=== PATIENT | male | born 1955 | race Caucasian/White ===

== ENCOUNTER 2024-04-01 11:52 | Inpatient (IN) | payer OTHER ==
[~2024-04-01] VITALS: Ht 160 cm; Wt 46.5 kg
[2024-04-01] VITALS (7 sets, daily range): BP systolic 107–112; BP diastolic 62–65; PULSE 82–86; RESP 15–20; TEMP 98.2; O2SAT 95–99
[2024-04-01] MEDS: NACL 0.9% 1,000 ML IV ONE (12:41)
[2024-04-01 12:43] LABS: BASOPHILS % (AUTO) 0.3 % (0.0-2.0); EOSINOPHILS # (AUTO) 0.1 K/uL (0-0.4); EOSINOPHILS % (AUTO) 1.5 % (0.0-4.0); HEMATOCRIT 44.9 % (36-52); HEMOGLOBIN 15.3 g/dL (12.0-18.0); LYMPHOCYTES # (AUTO) 0.3 K/uL (2.0-11.5); LYMPHOCYTES % (AUTO) 3.9 % (20.5-51.1); MEAN CORPUSCULAR HEMOGLOBIN 30 pg (27-31); MEAN CORPUSCULAR HGB CONC 34 g/dL (33-37); MEAN CORPUSCULAR VOLUME 89.1 fL (80-94); MONOCYTES # (AUTO) 0.5 K/uL (0.8-1.0); MONOCYTES % (AUTO) 5.6 % (1.7-9.3); NEUTROPHILS # (AUTO) 7.8 K/uL (1.8-7.7); NEUTROPHILS % (AUTO) 88.7 % (42.2-75.2); PLATELET COUNT (AUTO) 123 K/uL (140-450); RED BLOOD CELL COUNT(AUTO) 5.04 MIL/uL (4.20-6.10); RED CELL DISTRIBUTION WIDTH 13.4 % (11.6-13.7); WHITE BLOOD COUNT (AUTO) 8.7 K/uL (4.8-10.8)
[2024-04-01 13:00] LABS: ANION GAP 12.8 (8-16); CALCIUM 8.8 mg/dL (8.5-10.1); CARBON DIOXIDE 26.1 mmol/L (21-32); POTASSIUM 3.9 mmol/L (3.5-5.1)
[2024-04-01 13:08] LABS: FLU A ANTIGEN negative (NEGATIVE); FLU B ANTIGEN NEGATIVE (NEGATIVE)
[2024-04-01 13:28] LABS: APPEARANCE,URINE CLEAR (CLEAR); BILIRUBIN,URINE 3+ (NEGATIVE); BLOOD, URINE 2+ (NEGATIVE); LEUKOCYTE ESTERASE ,URINE NEGATIVE (NEGATIVE); NITRITE, URINE NEGATIVE (NEGATIVE); PROTEIN,URINE 2+ (NEGATIVE); UGLUCOSE 3+ (NEGATIVE)
[2024-04-01 13:36] LABS: ALANINE AMINOTRANSFERASE 187 U/L (12-78); ALBUMIN 2.9 g/dL (3.4-5.0); ALCOHOL, BLOOD < 3 mg/dL (<10); ALKALINE PHOSPHATASE 230 U/L (50-136); ASPARTATE AMINOTRANSFERASE 132 U/L (15-37); BILIRUBIN,DIRECT 7.1 mg/dL (0.0-0.3); CREATINE KINASE, TOTAL 18 U/L (39-308); TOTAL BILIRUBIN 8.2 mg/dL (0.0-1.0); TOTAL PROTEIN, SERUM 6.6 g/dL (6.4-8.2)
[2024-04-01 13:44] LABS: AMPHETAMINE, URINE NEGATIVE ng/ml (NEG <=1000); BARBITURATE, URINE NEGATIVE ng/ml (NEG <=200); BENZODIAZEPINE, URINE NEGATIVE ng/mL (NEG <=200); CANNABINOID, URINE NEGATIVE ng/mL (NEG <=50); COCAINE, URINE NEGATIVE ng/mL (NEG <=300); OPIATE, URINE NEGATIVE ng/mL (NEG <=2000); PHENCYCLIDINE SCREEN,URINE NEGATIVE ng/mL (NEG <=25)
[2024-04-01 13:47] LABS: COLOR,URINE DARK YELLOW (YELLOW)
[2024-04-01 13:52] LABS: ICTOTEST POSITIVE (NEGATIVE)
[2024-04-01 13:56] LABS: BACTERIA,URINE 1+ /HPF (None Seen); RBC,URINE 0-5 /HPF (0-5); SQUAMOUS EPITHELIAL CELL,UR 0-3 (FEW) /LPF (0-3 (FEW)); WBC,URINE 0-5 /HPF (0-5)
[2024-04-01] MEDS ORDERED: DEXTROSE 50% 50 ML SYR IVP PRN (16:40)
[2024-04-01] MEDS ORDERED: ONDANSETRON 4 MG/2 ML VIAL IVP PRN (16:40)
[2024-04-01] MEDS: NACL 0.9% 1,000 ML IV SCH (16:53)
[2024-04-01] MEDS: INSULIN LISPRO SLIDING SCALE 100 UNITS/ML VIAL SUBQ PRN (17:00)
[2024-04-01] MEDS: BLOOD GLUCOSE MONITORING 1 DEV DEV FS SCH (21:06)
[2024-04-01] MEDS ORDERED: PRED5DRO LEFT EYE (22:10)
[2024-04-01] MEDS ORDERED: KETO5SOL OP (22:10)
[2024-04-02] VITALS: BP 105/65; PULSE 63; PULSE 80; RESP 18; TEMP 98.2; O2SAT 96
[2024-04-02 04:00] VITALS: BP_SYST 116; BP_SYST 156; BP_DIAS 72; BP_DIAS 83; PULSE 77; PULSE 78; RESP 18; TEMP 97.6; O2SAT 96
[2024-04-02 07:04] LABS: BASOPHILS % (AUTO) 0.3 % (0.0-2.0); EOSINOPHILS # (AUTO) 0.1 K/uL (0-0.4); EOSINOPHILS % (AUTO) 1.8 % (0.0-4.0); HEMATOCRIT 39.6 % (36-52); HEMOGLOBIN 13.8 g/dL (12.0-18.0); LYMPHOCYTES # (AUTO) 0.4 K/uL (2.0-11.5); LYMPHOCYTES % (AUTO) 6.5 % (20.5-51.1); MEAN CORPUSCULAR HEMOGLOBIN 31 pg (27-31); MEAN CORPUSCULAR HGB CONC 35 g/dL (33-37); MEAN CORPUSCULAR VOLUME 89.6 fL (80-94); MONOCYTES # (AUTO) 0.4 K/uL (0.8-1.0); NEUTROPHILS # (AUTO) 5.3 K/uL (1.8-7.7); NEUTROPHILS % (AUTO) 84.4 % (42.2-75.2); PLATELET COUNT (AUTO) 106 K/uL (140-450); RED BLOOD CELL COUNT(AUTO) 4.42 MIL/uL (4.20-6.10); RED CELL DISTRIBUTION WIDTH 13.6 % (11.6-13.7); WHITE BLOOD COUNT (AUTO) 6.2 K/uL (4.8-10.8)
[2024-04-02 07:06] LABS: ANION GAP 13.3 (8-16); CALCIUM 8.2 mg/dL (8.5-10.1); CARBON DIOXIDE 22.4 mmol/L (21-32); CREATININE 0.8 mg/dL (0.6-1.3); POTASSIUM 3.7 mmol/L (3.5-5.1)
[2024-04-02 07:08] LABS: ALBUMIN 2.4 g/dL (3.4-5.0); BILIRUBIN,DIRECT 6.4 mg/dL (0.0-0.3); TOTAL BILIRUBIN 7.4 mg/dL (0.0-1.0); TOTAL PROTEIN, SERUM 5.7 g/dL (6.4-8.2)
[2024-04-02 08:00] VITALS: BP 116/64; PULSE 71; PULSE 72; RESP 18; TEMP 98.9; O2SAT 98
[2024-04-02 12:00] VITALS: BP 106/60; PULSE 64; PULSE 89; RESP 18; TEMP 97.1; O2SAT 98
[2024-04-02 16:00] VITALS: BP 132/85; PULSE 76; RESP 18; TEMP 98.5; O2SAT 98
[2024-04-02 20:00] VITALS: BP 148/84; PULSE 72; RESP 17; RESP 18; TEMP 98.5; O2SAT 96
[2024-04-03 04:15] VITALS: BP 146/91; PULSE 77; RESP 17; TEMP 98.7; O2SAT 96
[2024-04-03 06:08] LABS: HEPATITIS A ANTIBODY IGM Negative (Negative); HEPATITIS B CORE AB TOTAL Negative (Negative); HEPATITIS B CORE, IGM Negative (Negative); HEPATITIS B SURFACE ANTIBODY Non Reactive (.); HEPATITIS B SURFACE ANTIGEN Negative (Negative); HEPATITIS C VIRUS ANTIBODY Non Reactive (Non Reactive)
[2024-04-03 06:56] LABS: BASOPHILS % (AUTO) 0.5 % (0.0-2.0); EOSINOPHILS # (AUTO) 0.1 K/uL (0-0.4); EOSINOPHILS % (AUTO) 1.9 % (0.0-4.0); HEMATOCRIT 39.1 % (36-52); HEMOGLOBIN 13.7 g/dL (12.0-18.0); LYMPHOCYTES # (AUTO) 0.6 K/uL (2.0-11.5); LYMPHOCYTES % (AUTO) 11.5 % (20.5-51.1); MEAN CORPUSCULAR HEMOGLOBIN 31 pg (27-31); MEAN CORPUSCULAR HGB CONC 35 g/dL (33-37); MEAN CORPUSCULAR VOLUME 88.6 fL (80-94); MONOCYTES # (AUTO) 0.5 K/uL (0.8-1.0); MONOCYTES % (AUTO) 10.1 % (1.7-9.3); NEUTROPHILS # (AUTO) 3.9 K/uL (1.8-7.7); PLATELET COUNT (AUTO) 117 K/uL (140-450); RED BLOOD CELL COUNT(AUTO) 4.41 MIL/uL (4.20-6.10); RED CELL DISTRIBUTION WIDTH 13.5 % (11.6-13.7); WHITE BLOOD COUNT (AUTO) 5.2 K/uL (4.8-10.8)
[2024-04-03 07:05] LABS: CALCIUM 8.3 mg/dL (8.5-10.1); CARBON DIOXIDE 22.6 mmol/L (21-32); CREATININE 0.7 mg/dL (0.6-1.3); POTASSIUM 3.6 mmol/L (3.5-5.1)
[2024-04-03 07:14] LABS: ALBUMIN 2.2 g/dL (3.4-5.0); BILIRUBIN,DIRECT 6.9 mg/dL (0.0-0.3); TOTAL BILIRUBIN 7.7 mg/dL (0.0-1.0); TOTAL PROTEIN, SERUM 5.8 g/dL (6.4-8.2)
[2024-04-03 08:00] VITALS: BP 130/86; PULSE 80; PULSE 86; RESP 17; RESP 18; TEMP 98; O2SAT 96; O2SAT 97
[2024-04-03 09:31] LABS: HEPATITIS A ANTIBODY TOTAL Positive (Negative)
[2024-04-03 20:00] VITALS: BP 141/90; PULSE 74; PULSE 81; RESP 18; RESP 19; TEMP 98.7; O2SAT 98
[2024-04-04] VITALS: TEMP 97.9
[2024-04-04 04:00] VITALS: BP 137/73; PULSE 68; RESP 18; TEMP 97.6; O2SAT 99
[2024-04-04 07:01] LABS: BASOPHILS % (AUTO) 0.6 % (0.0-2.0); EOSINOPHILS # (AUTO) 0.1 K/uL (0-0.4); EOSINOPHILS % (AUTO) 2.7 % (0.0-4.0); HEMATOCRIT 39.2 % (36-52); HEMOGLOBIN 13.7 g/dL (12.0-18.0); LYMPHOCYTES # (AUTO) 0.7 K/uL (2.0-11.5); LYMPHOCYTES % (AUTO) 15.7 % (20.5-51.1); MEAN CORPUSCULAR HEMOGLOBIN 31 pg (27-31); MEAN CORPUSCULAR HGB CONC 35 g/dL (33-37); MEAN CORPUSCULAR VOLUME 87.7 fL (80-94); MONOCYTES # (AUTO) 0.7 K/uL (0.8-1.0); MONOCYTES % (AUTO) 14.3 % (1.7-9.3); NEUTROPHILS # (AUTO) 3.1 K/uL (1.8-7.7); NEUTROPHILS % (AUTO) 66.7 % (42.2-75.2); PLATELET COUNT (AUTO) 129 K/uL (140-450); RED BLOOD CELL COUNT(AUTO) 4.47 MIL/uL (4.20-6.10); RED CELL DISTRIBUTION WIDTH 13.5 % (11.6-13.7); WHITE BLOOD COUNT (AUTO) 4.7 K/uL (4.8-10.8)
[2024-04-04 07:40] LABS: ANION GAP 11.7 (8-16); CALCIUM 8.1 mg/dL (8.5-10.1); CARBON DIOXIDE 24.7 mmol/L (21-32); CREATININE 0.6 mg/dL (0.6-1.3); MAGNESIUM 1.7 mg/dL (1.8-2.4); POTASSIUM 3.4 mmol/L (3.5-5.1); TOTAL BILIRUBIN 7.7 mg/dL (0.0-1.0); TOTAL PROTEIN, SERUM 5.5 g/dL (6.4-8.2)
[2024-04-04 08:00] VITALS: BP 135/71; PULSE 77; RESP 18; TEMP 97; O2SAT 99
[2024-04-04] MEDS: fentaNYL citrate 0.05 MG/ML VIAL ONE (08:58)
[2024-04-04] MEDS: MIDAZOLAM 2 MG/2 ML VIAL ONE (08:59)
[2024-04-04] MEDS: PROPOFOL 200 MG/20 ML VIAL IV ONE (09:00)
[2024-04-04] MEDS: ONDANSETRON 4 MG/2 ML VIAL ONE (09:00)
[2024-04-04] MEDS: SUCCINYLCHOLINE CHLORIDE 200 MG/10 ML VIAL IVP ONE (09:00)
[2024-04-04] MEDS: ePHEDrine 50 MG/ML VIAL ONE (10:59)
[2024-04-04] MEDS: DEXAMETHASONE 4 MG/ML VIAL ONE (10:59)
[2024-04-04] MEDS ORDERED: SEVOFLURANE 250 ML BTL INH ONE (11:01)
[2024-04-04] MEDS: MORPHINE SULFATE 2 MG/ML SYR IVP PRN (14:58)
== END 2024-04-04 17:40 | disposition left against medical advice (07) ==
LOC: MED 11:52 → MTU 16:39
PROVIDERS: ADMIT Student in an Organized Health Care Education/Training Program; ATTEND Student in an Organized Health Care Education/Training Program
PROC: 0F798ZZ Dilation of Common Bile Duct, Via Natural or Artificial Opening Endoscopic (ICD-10-PCS; 2024-04-04)
PROC: 0F788ZZ Dilation of Cystic Duct, Via Natural or Artificial Opening Endoscopic (ICD-10-PCS; 2024-04-04)
PROC: BF131ZZ Fluoroscopy of Gallbladder and Bile Ducts using Low Osmolar Contrast (ICD-10-PCS; principal; 2024-04-04 08:30)
DX: K83.1 Obstruction of bile duct (principal); K76.82 Hepatic encephalopathy; E44.1 Mild protein-calorie malnutrition; C22.8 Malignant neoplasm of liver, primary, unspecified as to type; D69.6 Thrombocytopenia, unspecified; B15.9 Hepatitis A without hepatic coma; E11.9 Type 2 diabetes mellitus without complications; Z20.822 Contact with and (suspected) exposure to COVID-19; R74.01 Elevation of levels of liver transaminase levels; Z79.4 Long term (current) use of insulin; Z68.1 Body mass index [BMI] 19.9 or less, adult
CPT/HCPCS: 36415; 70450; 71045; 74330; 76705; 77003; 78445; 80048; 80053; 80076; 80305; 81001; 82140; 82550; 82948; 83516; 83690; 83735; 84484; 85025; 86301; 86704; 86706; 86708; 86709; 86803; 87081; 87086; 87340; 93005; 96360; 97116; 97163-GP; 99285; C1769; C1773; G0482; J0330; J1100; J1815; J2250; J2270; J2405; J2704; J3010; J7120; Q9967